=== PATIENT | female | born 1975 | race Caucasian/White ===

== ENCOUNTER 2018-11-20 13:20 | Emergency (ER) | payer BC ==
[~2018-11-20] VITALS: Ht 160 cm; Wt 76.2 kg
[2018-11-20 13:28] VITALS: BP 126/85
--- NOTE | 2018-11-20 13:34 | NUR ---
DIZZINESS DUE TO HEAD INJURY, NO EKG IN TRIAGE PER PAC
--- NOTE | 2018-11-20 14:23 | NUR ---
PT LEFT AMA, REFUSED TO SIGN AMA FORM WITH REGISTRATION.
== END 2018-11-20 14:25 | disposition left against medical advice (07) ==
LOC: ED 14:00
DX: F07.81 Postconcussional syndrome (principal)
CPT/HCPCS: 99281

== ENCOUNTER → 2018-11-20 | Outpatient (CLI) | payer BC | END | disposition home or self-care (01) | LOC: RAD 11:26 | PROVIDERS: ATTEND Family Medicine | DX: S06.9X9A Unspecified intracranial injury with loss of consciousness of unspecified duration, initial encounter (principal); S07.1XXA Crushing injury of skull, initial encounter; X58.XXXA Exposure to other specified factors, initial encounter; Y93.89 Activity, other specified; Y92.89 Other specified places as the place of occurrence of the external cause; Y99.8 Other external cause status | CPT/HCPCS: 70450 ==

== ENCOUNTER 2018-12-08 18:36 | Inpatient (IN) | payer BC ==
[~2018-12-08] VITALS: Ht 160 cm; Wt 76.2 kg
--- NOTE | 2018-12-08 18:49 | NUR ---
Patient brought in by EMS after patient reportedly attempted to overdose on lunesta 2 mg tablets, patient reported to EMS that she took 10 tablets and was drinking alcohol in attempt to kill herself. Patient called 911 herself. Patient arrives drowsy, slurring speech, arouses to voice but does not clearly answer questions. Unable to determine if patient is oriented. IV x2 large bore started by EMS prior to arrival, 500mL normal saline administered en route. Continuous blood pressure, SPO2 and cardiac monitoring in place.
[2018-12-08] MEDS ORDERED: SODIUM CHLORIDE 0.9% 1,000ML IVBOLUS ONE (19:00)
[2018-12-08] MEDS ORDERED: SODIUM CHLORIDE FLUSH 10ML SYR IVF ONE (19:00)
--- NOTE | 2018-12-08 19:00 | NUR ---
[facility] [place] in [facility] - 12/08/18 at 1936 by ARTIS REPORT REV
[2018-12-08 19:15] LABS: BASOPHILS # (AUTO) 0.05 x10^3/uL (0-0.1); BASOPHILS % (AUTO) 1 % (0-1); EOSINOPHILS # (AUTO) 0.07 x10^3/uL (0-0.4); EOSINOPHILS % (AUTO) 1 % (1-7); LYMPHOCYTES # (AUTO) 2.04 x10^3/uL (1-3.4); LYMPHOCYTES % (AUTO) 34 % (22-44); MD NO; MEAN CORPUSCULAR HEMOGLOBIN 32.6 pg (27.0-34.8); MEAN CORPUSCULAR HGB CONC 34.1 g/dL (32.4-35.8); MEAN CORPUSCULAR VOLUME 95.5 fL (80-100); MEAN PLATELET VOLUME 7.3 fL (7.4-10.4); MONOCYTES # (AUTO) 0.38 x10^3/uL (0.2-0.8); MONOCYTES % (AUTO) 6 % (2-9); NEUTROPHILS # (AUTO) 3.43 x10^3/uL (1.8-6.8); NEUTROPHILS % (AUTO) 58 % (42-75); PLATELET COUNT 289 x10^3/uL (130-400); RED BLOOD COUNT 3.92 x10^6/uL (3.82-5.3); RED CELL DISTRIBUTION WIDTH 13.2 % (9.6-15.2)
[2018-12-08 19:27] LABS: ALANINE AMINOTRANSFERASE 22 U/L (12-78); ALBUMIN 3.8 g/dL (3.4-5.0); ANION GAP 9 mmol/L (5-15); CALCIUM 7.6 mg/dL (8.5-10.1); CHLORIDE 117 mmol/L (98-107); CREATININE 0.78 mg/dL (0.55-1.02)
[2018-12-08 19:31] LABS: ACETAMINOPHEN < 2 mcg/mL (10-30); SALICYLATE LEVEL < 1.7 mg/dL (2.8-20.0)
[2018-12-08 19:32] LABS: ALKALINE PHOSPHATASE 48 U/L (45-117); BILIRUBIN,TOTAL 0.3 mg/dL (0.2-1.0); TOTAL PROTEIN 6.5 g/dL (6.4-8.2)
--- NOTE | 2018-12-08 19:36 | NUR ---
REPORT RECEIVED FROM MARS CAMPBELL. PT LYING ON NELLIE Addendum: 12/08/18 at 1937 by ARTIS STRETCHER WITH EYES CLOSED, SNORING NOISES HEARD. PT RESPONDS TO PAINFUL STIMULI AND DOES TRACK WHEN YOU OPEN HER EYES. NEAL JON BOLUS STARTED, LABS DRAWN, CALL LIGHT IN REACH
--- NOTE | 2018-12-08 19:36 | NUR ---
Marium [place] in [facility] - 12/08/18 at 1936 by ARTIS REPORT R3
--- NOTE | 2018-12-08 19:51 | NUR ---
PT SAT UP, WAS GOING TO TRY YO GET UP, REDIRECTED TO LIE DOWN. PT ASKED IF SHE WAS IN HOSPITAL, INFORMED SHE WAS. PT RESPONDED WHEN ASKED WHICH HOSPITAL WITH [place], ALSO WITH CORRECT CITY AND STATE, KNOWS IT'S SUNDAY
[2018-12-08] MEDS: D5%-0.45% NACL 1,000 ML IV SCH (19:52)
[2018-12-08] MEDS ORDERED: ACETAMINOPHEN 325 MG TABLET PO PRN (20:00)
[2018-12-08] MEDS ORDERED: D5%-0.45% NACL 1,000 ML IV SCH (20:00)
[2018-12-08] MEDS ORDERED: BISACODYL 10 MG SUPP PR PRN (20:00)
[2018-12-08] MEDS ORDERED: ONDANSETRON 2MG/ML, 2ML IVPush PRN (20:00)
[2018-12-08] MEDS ORDERED: POLYETHYLENE GLYCOL 17 GM PACKET PO PRN (20:00)
[2018-12-08] MEDS ORDERED: HEPARIN 5,000 UNITS/ML, 1ML ONE (20:28)
[2018-12-08] MEDS: HEPARIN 5,000 UNITS/ML, 1ML SQ SCH (20:32)
--- NOTE | 2018-12-08 20:39 | NUR ---
PT RESTING QUIETLY WITH EYES CLOSE, SNORING NOISES HEARED, NO DISTRESS NOTED, CALL LIGHT IN REACH
--- NOTE | 2018-12-08 21:26 | NUR ---
NO CHANGES, PT RESTING WITH EYES CLOSED, SNORING NOISES HEARD, CALL LIGHT IN REACH
--- NOTE | 2018-12-08 22:20 | NUR ---
PT GIVEN WARM BLANKET PER REQUEST, NO DISTRESS NOTE
--- NOTE | 2018-12-08 23:57 | NUR ---
REPORT GIVEN TO MARS RODRIGUEZ
[2018-12-09] MEDS ORDERED: ESZO2TAB22 PO (00:20)
[2018-12-09] MEDS ORDERED: SERT25TA PO (00:20)
[2018-12-09 00:25] VITALS: BP 94/60
[2018-12-09 02:29] VITALS: BP 98/63
[2018-12-09] MEDS: D5%-0.45% NACL 1,000 ML IV SCH (04:50)
[2018-12-09] MEDS: HEPARIN 5,000 UNITS/ML, 1ML SQ SCH ×2 (04:50→12:21)
[2018-12-09 06:31] LABS: BASOPHILS # (AUTO) 0.02 x10^3/uL (0-0.1); BASOPHILS % (AUTO) 1 % (0-1); EOSINOPHILS % (AUTO) 2 % (1-7); LYMPHOCYTES # (AUTO) 1.42 x10^3/uL (1-3.4); LYMPHOCYTES % (AUTO) 30 % (22-44); MD NO; MEAN CORPUSCULAR HEMOGLOBIN 33.5 pg (27.0-34.8); MEAN CORPUSCULAR HGB CONC 34.9 g/dL (32.4-35.8); MEAN CORPUSCULAR VOLUME 95.8 fL (80-100); MEAN PLATELET VOLUME 7.3 fL (7.4-10.4); MONOCYTES % (AUTO) 6 % (2-9); NEUTROPHILS # (AUTO) 2.86 x10^3/uL (1.8-6.8); NEUTROPHILS % (AUTO) 61 % (42-75); PLATELET COUNT 255 x10^3/uL (130-400); RED BLOOD COUNT 3.61 x10^6/uL (3.82-5.3); RED CELL DISTRIBUTION WIDTH 13.2 % (9.6-15.2)
[2018-12-09 06:34] LABS: ALBUMIN 3.3 g/dL (3.4-5.0); ANION GAP 7 mmol/L (5-15); CALCIUM 7.6 mg/dL (8.5-10.1); CHLORIDE 116 mmol/L (98-107)
[2018-12-09 06:38] LABS: ALANINE AMINOTRANSFERASE 17 U/L (12-78); ALKALINE PHOSPHATASE 41 U/L (45-117); BILIRUBIN,TOTAL 0.7 mg/dL (0.2-1.0); CREATININE 0.53 mg/dL (0.55-1.02); TOTAL PROTEIN 5.8 g/dL (6.4-8.2)
[2018-12-09 07:30] VITALS: BP 97/61
[2018-12-09 08:24] LABS: CULTURE INDICATED? YES
[2018-12-09 08:25] LABS: MICROSCOPIC INDICATED
[2018-12-09 08:30] LABS: AMPHETAMINE SCREEN, URINE Negative (Negative); BARBITURATE SCREEN, URINE Negative (Negative); BENZODIAZEPINE SCREEN, URINE Negative (Negative); CANNABINOID SCREEN, URINE Negative (Negative); COCAINE SCREEN, URINE Negative (Negative); METHADONE SCREEN, URINE Negative (Negative); OPIATE SCREEN, URINE Negative (Negative)
[2018-12-09] MEDS ORDERED: SENNA/DOCUSATE TABLET PO SCH (09:00)
[2018-12-09 12:52] VITALS: BP 113/73
== END 2018-12-09 19:06 | DRG 917 ==
LOC: ED 19:10 → EDIP 19:52 → 4EST 12-09 01:04
PROVIDERS: ADMIT Family Medicine; ATTEND Family Medicine
DX: T42.6X2A Poisoning by other antiepileptic and sedative-hypnotic drugs, intentional self-harm, initial encounter (principal); G92 Toxic encephalopathy; E87.0 Hyperosmolality and hypernatremia; E87.8 Other disorders of electrolyte and fluid balance, not elsewhere classified; F10.129 Alcohol abuse with intoxication, unspecified; I10 Essential (primary) hypertension; R00.0 Tachycardia, unspecified; F32.9 Major depressive disorder, single episode, unspecified; G47.00 Insomnia, unspecified; Y92.89 Other specified places as the place of occurrence of the external cause
CPT/HCPCS: 36415; 80053; 80307; 80329; 81001; 84443; 84703; 85025; 87086; 93005; 96360; 96361; J1644; G0480; J7030